=== PATIENT | male | born 1965 | race Hispanic/Latino ===

== ENCOUNTER 2021-04-15 23:19 | Inpatient (IN) | payer SELFPAY ==
[2021-04-16 01:53] VITALS: BMI 34.9
[2021-04-16] MEDS ORDERED: hydrALAZINE 20 MG/ML VIAL SLOW IVP PRN (03:23)
[2021-04-16] MEDS ORDERED: Ondansetron PF 4 MG/2 ML Vial IVP PRN (03:23)
[2021-04-16] MEDS ORDERED: Acetaminophen 500 MG TAB PO PRN (03:23)
[2021-04-16] MEDS ORDERED: Dextrose 5% in Water 1,000 ML IV PRN (03:23)
[2021-04-16] MEDS ORDERED: HumaLOG 300 UNITS/3 ML VIAL SC PRN ×2 (03:23)
[2021-04-16] MEDS ORDERED: Ondansetron ODT 4 MG TAB PO PRN (03:23)
[2021-04-16] MEDS ORDERED: Dextrose 50% Abboject 50 ML SYRINGE SLOW IVP PRN (03:23)
[2021-04-16] MEDS ORDERED: cefTRIAXone\\ROCEPHIN 2 GM in Sodium Chloride 0.9% 100 ML IVPB SCH (03:45)
[2021-04-16] MEDS: Sodium Chloride 0.9% 1,000 ML IV SCH ×2 (03:48→18:34)
[2021-04-16 04:03] LABS: #Lymphocytes 0.6 thou/uL (1.20-3.40); #Monocytes 0.9 thou/uL (0.11-0.59); #Neutrophils 11.4 thou/uL (1.40-6.50); %Eosinophils 0.1 % (0.0-10.0); %Lymphocytes 4.7 % (21.0-51.0); %Monocytes 7.2 % (0.0-10.0); Hemoglobin 11.7 g/dL (14.0-18.0); Mean Corpuscular HGB CONC 35.6 g/dL (32.0-36.0); Mean Corpuscular Hemoglobin 31.1 pg (27.0-31.0); Mean Corpuscular Volume 87.4 fL (78.0-98.0); Platelet Count 129 thou/uL (130-400); RBC Distribution Width 12.8 % (11.5-14.5); Red Blood Cell (RBC) Count 3.76 mill/uL (4.70-6.10); White Blood Cell (WBC) Count 12.9 thou/uL (4.8-10.8)
[2021-04-16 04:24] LABS: ALT (SGPT) 12 U/L (8-55); AST (SGOT) 14 U/L (5-34); Albumin 3.2 g/dL (3.5-5.0); Alkaline Phosphatase 78 U/L (40-110); Anion Gap 16 mmol/L (10-20); BUN (Urea Nitrogen) 20 mg/dL (8.4-25.7); Bilirubin, Total 0.6 mg/dL (0.2-1.2); Calc. Creatinine Clearance 161 mL/min (70-130); Carbon Dioxide 19 mmol/L (22-29); Chloride 108 mmol/L (98-107); Globulin 2.4 g/dL (2.4-3.5); Glucose 183 mg/dL (70-105); Potassium 3.8 mmol/L (3.5-5.1); Protein, Total 5.6 g/dL (6.0-8.3); Sodium 139 mmol/L (136-145)
[2021-04-16] MEDS ORDERED: VANCOMYCIN 2 GRAM/400 ML BAG 2 GM in Premix Bag 1 BAG IVPB SCH ×2 (04:45→13:00)
[2021-04-16] MEDS: VANCOMYCIN 2 GRAM/400 ML BAG 2 GM in Premix Bag 1 BAG IVPB SCH ×4 (05:01→22:34)
[2021-04-16 08:37] LABS: Lactic Acid 2.3 mmol/L (0.5-2.2)
[2021-04-16] MEDS: Finasteride 5 MG TAB PO SCH (08:41)
[2021-04-16] MEDS: Tamsulosin HCl 0.4 MG CAP PO SCH (08:41)
[2021-04-16] MEDS: Famotidine 20 MG TAB PO SCH ×2 (08:42→20:14)
[2021-04-16] MEDS: Lantus 1000 UNITS/10 ML VIAL SC SCH ×2 (08:42→20:15)
[2021-04-16] MEDS: HumaLOG 300 UNITS/3 ML VIAL SC SCH ×3 (08:42→17:13)
[2021-04-16] MEDS: Amiodarone 200 MG TAB PO SCH (08:43)
[2021-04-16] MEDS ORDERED: SODIUM CHLORIDE 0.9% IVPB SCH (09:00)
[2021-04-16] MEDS ORDERED: VANCOMYCIN HCL IVPB SCH (09:00)
[2021-04-16] MEDS ORDERED: Sodium Chloride 0.9% 1,000 ML IV SCH (11:15)
[2021-04-16] MEDS: Pregabalin 75 MG CAP PO SCH (20:13)
[2021-04-16] MEDS: cefTRIAXone\\ROCEPHIN 2 GM in Sodium Chloride 0.9% 100 ML IVPB SCH (20:52)
[2021-04-16] MEDS ORDERED: Rivaroxaban 10 MG TAB PO SCH (21:00)
[2021-04-16 21:37] LABS: Vancomycin, Trough 14.9 ug/mL
[2021-04-17] MEDS ORDERED: cefTRIAXone\\ROCEPHIN 2 GM in Sodium Chloride 0.9% 100 ML IVPB SCH (04:00)
[2021-04-17] MEDS: VANCOMYCIN 2 GRAM/400 ML BAG 2 GM in Premix Bag 1 BAG IVPB SCH ×2 (05:09→15:18)
[2021-04-17 05:14] LABS: #Lymphocytes 1.3 thou/uL (1.20-3.40); #Monocytes 0.6 thou/uL (0.11-0.59); #Neutrophils 5.2 thou/uL (1.40-6.50); %Basophils 0.1 % (0.0-1.0); %Eosinophils 0.1 % (0.0-10.0); %Lymphocytes 18.1 % (21.0-51.0); %Monocytes 8.8 % (0.0-10.0); %Neutrophils 72.9 % (42.0-75.0); Mean Corpuscular HGB CONC 34.4 g/dL (32.0-36.0); Mean Corpuscular Hemoglobin 30.4 pg (27.0-31.0); Mean Corpuscular Volume 88.2 fL (78.0-98.0); Mean Platelet Volume 7.3 fL (7.4-10.4); Platelet Count 120 thou/uL (130-400); RBC Distribution Width 12.9 % (11.5-14.5); Red Blood Cell (RBC) Count 3.63 mill/uL (4.70-6.10); White Blood Cell (WBC) Count 7.1 thou/uL (4.8-10.8)
[2021-04-17 05:36] LABS: Anion Gap 14 mmol/L (10-20); BUN (Urea Nitrogen) 14 mg/dL (8.4-25.7); Calc. Creatinine Clearance 195 mL/min (70-130); Calcium 7.8 mg/dL (7.8-10.44); Carbon Dioxide 17 mmol/L (22-29); Chloride 107 mmol/L (98-107); Glucose 117 mg/dL (70-105); Potassium 3.9 mmol/L (3.5-5.1); Sodium 134 mmol/L (136-145)
[2021-04-17] MEDS: Tamsulosin HCl 0.4 MG CAP PO SCH (10:23)
[2021-04-17] MEDS: Amiodarone 200 MG TAB PO SCH (10:23)
[2021-04-17] MEDS: Finasteride 5 MG TAB PO SCH (10:23)
[2021-04-17] MEDS: Famotidine 20 MG TAB PO SCH ×2 (10:24→19:59)
[2021-04-17] MEDS: HumaLOG 300 UNITS/3 ML VIAL SC SCH ×3 (10:24→17:53)
[2021-04-17] MEDS: Lantus 1000 UNITS/10 ML VIAL SC SCH ×2 (10:25→20:42)
[2021-04-17] MEDS ORDERED: Furosemide 40 MG TAB PO SCH (10:30)
[2021-04-17] MEDS: Furosemide 40 MG TAB PO SCH (11:47)
[2021-04-17] MEDS: Rivaroxaban 10 MG TAB PO SCH (17:54)
[2021-04-17] MEDS: Pregabalin 75 MG CAP PO SCH (19:58)
[2021-04-17] MEDS: Sacubitril 49 MG/Valsartan 51 MG TABLET PO SCH (19:58)
[2021-04-17] MEDS: cefTRIAXone\\ROCEPHIN 2 GM in Sodium Chloride 0.9% 100 ML IVPB SCH (20:42)
[2021-04-18 04:49] LABS: #Lymphocytes 1.2 thou/uL (1.20-3.40); #Monocytes 0.5 thou/uL (0.11-0.59); #Neutrophils 3.3 thou/uL (1.40-6.50); %Eosinophils 0.4 % (0.0-10.0); %Lymphocytes 24.2 % (21.0-51.0); %Monocytes 9.1 % (0.0-10.0); %Neutrophils 65.4 % (42.0-75.0); Hemoglobin 11.8 g/dL (14.0-18.0); Mean Corpuscular HGB CONC 33.7 g/dL (32.0-36.0); Mean Corpuscular Hemoglobin 30.1 pg (27.0-31.0); Mean Corpuscular Volume 89.1 fL (78.0-98.0); Mean Platelet Volume 7.7 fL (7.4-10.4); Platelet Count 140 thou/uL (130-400); RBC Distribution Width 12.8 % (11.5-14.5); Red Blood Cell (RBC) Count 3.93 mill/uL (4.70-6.10); White Blood Cell (WBC) Count 5.1 thou/uL (4.8-10.8)
[2021-04-18 05:04] LABS: Anion Gap 14 mmol/L (10-20); BUN (Urea Nitrogen) 11 mg/dL (8.4-25.7); Calc. Creatinine Clearance 210 mL/min (70-130); Calcium 8.5 mg/dL (7.8-10.44); Carbon Dioxide 17 mmol/L (22-29); Chloride 110 mmol/L (98-107); Glucose 153 mg/dL (70-105); Potassium 3.8 mmol/L (3.5-5.1); Sodium 137 mmol/L (136-145)
[2021-04-18] MEDS ORDERED: Multivitamin W/ Minerals 1 TAB PO SCH (09:00)
[2021-04-18] MEDS: Sacubitril 49 MG/Valsartan 51 MG TABLET PO SCH (09:23)
[2021-04-18] MEDS: Amiodarone 200 MG TAB PO SCH (09:24)
[2021-04-18] MEDS: Famotidine 20 MG TAB PO SCH (09:24)
[2021-04-18] MEDS: Finasteride 5 MG TAB PO SCH (09:24)
[2021-04-18] MEDS: Tamsulosin HCl 0.4 MG CAP PO SCH (09:24)
[2021-04-18] MEDS: Lantus 1000 UNITS/10 ML VIAL SC SCH (09:25)
[2021-04-18] MEDS: Furosemide 40 MG TAB PO SCH (09:25)
[2021-04-18] MEDS: HumaLOG 300 UNITS/3 ML VIAL SC SCH ×3 (09:25→17:19)
[2021-04-18 14:33] VITALS: BP 111/54; TEMP 98.9
[2021-04-18] MEDS: Rivaroxaban 10 MG TAB PO SCH (17:40)
== END 2021-04-18 17:51 | disposition home or self-care (01) | DRG 698 ==
LOC: 2NO 23:19
PROVIDERS: ADMIT Family Medicine; ATTEND Internal Medicine
DX: T83.518A Infection and inflammatory reaction due to other urinary catheter, initial encounter (principal); A41.51 Sepsis due to Escherichia coli [E. coli]; R65.20 Severe sepsis without septic shock; G93.41 Metabolic encephalopathy; N39.0 Urinary tract infection, site not specified; I69.354 Hemiplegia and hemiparesis following cerebral infarction affecting left non-dominant side; I42.8 Other cardiomyopathies; Y84.6 Urinary catheterization as the cause of abnormal reaction of the patient, or of later complication, without mention of misadventure at the time of the procedure; E22.0 Acromegaly and pituitary gigantism; C61 Malignant neoplasm of prostate; R33.9 Retention of urine, unspecified; E11.9 Type 2 diabetes mellitus without complications; I10 Essential (primary) hypertension; Z95.810 Presence of automatic (implantable) cardiac defibrillator; Z98.890 Other specified postprocedural states; Z79.01 Long term (current) use of anticoagulants; Z79.4 Long term (current) use of insulin; Z79.899 Other long term (current) drug therapy
CPT/HCPCS: 36415; 36416; 71045; 80048; 80053; 80202; 83605; 85025; 87040; J0696; J1815; J3370; J3490